=== PATIENT | male | born 1960 | race Caucasian/White ===

== ENCOUNTER → 2021-12-02 08:30 | Outpatient (BNVA) | payer MEDICARE, SELFPAY | PROVIDERS: Visit Provider Specialist | DX: G20 Parkinson's disease (principal); G47.10 Hypersomnia, unspecified; F32.A Depression, unspecified; G47.30 Sleep apnea, unspecified | CPT/HCPCS: 99204; 99205 ==

== ENCOUNTER 2022-02-19 20:00 | Outpatient (CLI) | payer MEDICARE, SELFPAY | END 2022-02-19 20:01 | disposition home or self-care (01) | LOC: SLEEP 02-20 06:39 | PROVIDERS: Visit Provider Specialist | DX: G47.30 Sleep apnea, unspecified (principal) | CPT/HCPCS: 95810 ==

== ENCOUNTER → 2022-05-21 12:46 | Outpatient (BNVA) | payer MEDICARE, SELFPAY | PROVIDERS: Visit Provider Specialist | DX: G24.01 Drug induced subacute dyskinesia (principal); G47.10 Hypersomnia, unspecified; G47.33 Obstructive sleep apnea (adult) (pediatric); G31.84 Mild cognitive impairment of uncertain or unknown etiology; T43.595A Adverse effect of other antipsychotics and neuroleptics, initial encounter; F32.A Depression, unspecified | CPT/HCPCS: 99214 ==

== ENCOUNTER 2022-06-10 20:00 | Outpatient (CLI) | payer MEDICARE, SELFPAY | END 2022-06-10 20:01 | disposition home or self-care (01) | LOC: SLEEP 06-11 06:06 | PROVIDERS: Visit Provider Specialist | DX: G47.30 Sleep apnea, unspecified (principal) | CPT/HCPCS: 95811 ==

== ENCOUNTER → 2023-09-18 14:28 | Outpatient (BNVA) | payer MEDICARE, SELFPAY | PROVIDERS: Visit Provider Specialist | DX: G47.33 Obstructive sleep apnea (adult) (pediatric) (principal); G43.711 Chronic migraine without aura, intractable, with status migrainosus | CPT/HCPCS: 99214; 99215 ==

== ENCOUNTER → 2023-12-24 11:57 | Outpatient (BNVA) | payer MEDICARE, SELFPAY | PROVIDERS: Visit Provider Specialist | DX: G43.711 Chronic migraine without aura, intractable, with status migrainosus (principal); G47.33 Obstructive sleep apnea (adult) (pediatric); R03.0 Elevated blood-pressure reading, without diagnosis of hypertension | CPT/HCPCS: 99213; 99214 ==